=== PATIENT | male | born 1990 | race Caucasian/White ===

== ENCOUNTER 2020-07-17 06:32 | Observation (INO) | payer BC ==
[2020-07-17] MEDS ORDERED: IPRATROPIUM BROM 0.5MG/2.5ML ONE (06:56)
[2020-07-17] MEDS ORDERED: ALBUTEROL 2.5 MG/3 ML NEB SOL ONE (06:56)
--- NOTE | 2020-07-17 06:58 | EDPHYS ---
Physician Documentation [facility] Name: Teodoro Carias Age: 30 yrs Sex: Male : 1990 Arrival Date: 07/17/2020 Time: 06:33 Bed 8 Private MD: ED Physician Harish Salomon HPI: 07/17 06:48 This 30 yrs old Male presents to ER via Wheelchair with complaints of Cough. ellie 06:48 The patient or guardian reports airway noise, cough. Onset: The symptoms/episode ellie began/occurred 5 day(s) ago. Severity of symptoms: At their worst the symptoms were moderate, in the emergency department the symptoms are unchanged. Modifying factors: The symptoms are alleviated by nothing, the symptoms are aggravated by nothing. Associated signs and symptoms: The patient has no apparent associated signs or symptoms. The patient has experienced similar episodes in the past, several times. Historical: - Allergies: 06:39 No Known Allergies; sg - Home Meds: 06:39 Albuterol Inhl [Active]; sg - PMHx: 06:39 Asthma; sg - PSHx: 06:39 None; sg - Immunization history:: Adult Immunizations up to date. - Social history:: Smoking status: Patient denies any tobacco usage or history of. - Family history:: not pertinent. ROS: 06:48 Constitutional: Negative for fever, chills, and weight loss, Eyes: Negative for injury, ellie pain, redness, and discharge, ENT: Negative for injury, pain, and discharge, Neck: Negative for injury, pain, and swelling, Cardiovascular: Negative for chest pain, palpitations, and edema, Abdomen/GI: Negative for abdominal pain, nausea, vomiting, diarrhea, and constipation, Back: Negative for injury and pain, : Negative for injury, bleeding, discharge, and swelling, MS/Extremity: Negative for injury and deformity, Skin: Negative for injury, rash, and discoloration, Neuro: Negative for headache, weakness, numbness, tingling, and seizure, Psych: Negative for depression, anxiety, suicide ideation, homicidal ideation, and hallucinations, Allergy/Immunology: Negative for hives, rash, and allergies, Endocrine: Negative for neck swelling, polydipsia, polyuria, polyphagia, and marked weight changes, Hematologic/Lymphatic: Negative for swollen nodes, abnormal bleeding, and unusual bruising. 06:48 Respiratory: Positive for cough, wheezing, inspiratory, expiratory. Exam: 06:48 Constitutional: This is a well developed, well nourished patient who is awake, alert, ellie and in no acute distress. Head/Face: Normocephalic, atraumatic. Eyes: Pupils equal round and reactive to light, extra-ocular motions intact. Lids and lashes normal. Conjunctiva and sclera are non-icteric and not injected. Cornea within normal limits. Periorbital areas with no swelling, redness, or edema. ENT: Nares patent. No nasal discharge, no septal abnormalities noted. Tympanic membranes are normal and external auditory canals are clear. Oropharynx with no redness, swelling, or masses, exudates, or evidence of obstruction, uvula midline. Mucous membranes moist. Neck: Trachea midline, no thyromegaly or masses palpated, and no cervical lymphadenopathy. Supple, full range of motion without nuchal rigidity, or vertebral point tenderness. No Meningismus. Chest/axilla: Normal chest wall appearance and motion. Nontender with no deformity. No lesions are appreciated. Abdomen/GI: Soft, non-tender, with normal bowel sounds. No distension or tympany. No guarding or rebound. No evidence of tenderness throughout. Back: No spinal tenderness. No costovertebral tenderness. Full range of motion. Male : Normal genitalia with no discharge or lesions. Skin: Warm, dry with normal turgor. Normal color with no rashes, no lesions, and no evidence of cellulitis. MS/ Extremity: Pulses equal, no cyanosis. Neurovascular intact. Full, normal range of motion. Neuro: Awake and alert, GCS 15, oriented to person, place, time, and situation. Cranial nerves II-XII grossly intact. Motor strength 5/5 in all extremities. Sensory grossly intact. Cerebellar exam normal. Normal gait. Psych: Awake, alert, with orientation to person, place and time. Behavior, mood, and affect are within normal limits. 06:48 Cardiovascular: Rate: tachycardic, Rhythm: regular, Pulses: Pulses are 4+ in bilateral radial, brachial, femoral, popliteal, posterior tibial and and dorsalis pedis arteries.. Heart sounds: normal, Edema: is not appreciated, JVD: is not appreciated. 07:11 ECG was reviewed by the Attending Physician. [facility] Vital Signs: 06:40 BP 120 / 79; Pulse 109; Resp 22; Temp 99.2(O); Pulse Ox 98% ; Weight 124.74 kg (R); lp1 Height 5 ft. 9 in. (175.26 cm); Pain 0/10; 07:31 BP 136 / 95; Pulse 119; Resp 23; Pulse Ox 97% ; Pain 0/10; rb1 09:12 BP 108 / 76; Pulse 106; Resp 20; Pulse Ox 95% on 2% Simple Mask; rb1 10:04 BP 108 / 64; Pulse 99; Resp 20; Pulse Ox 97% on 2% Simple Mask; Pain 0/10; rb1 06:40 Body Mass Index 40.61 (124.74 kg, 175.26 cm) lp1 MDM: 06:40 Patient medically screened. ellie 06:48 Differential Diagnosis: Bronchitis Influenza Upper Respiratory Infection Pharyngitis ellie Asthma Exacerbation Viral Syndrome Pneumonia. Data reviewed: vital signs, nurses notes, lab test result(s), EKG, radiologic studies. Data interpreted: monitoring coordinator: rate is 109 beats/min, rhythm is regular, Pulse oximetry: on room air is 90 %. Test interpretation: by ED physician or midlevel provider: ECG, plain radiologic studies. Counseling: I had a detailed discussion with the patient and/or guardian regarding: the historical points, exam findings, and any diagnostic results supporting the discharge/admit diagnosis, lab results, radiology results, the need for further work-up and treatment in the hospital. 07/17 06:47 Order name: Basic Metabolic Panel [facility] 07/17 06:47 Order name: CBC with Diff [facility] 07/17 06:47 Order name: LFT's [facility] 07/17 06:47 Order name: Magnesium [facility] 07/17 06:47 Order name: NT PRO-BNP [facility] 07/17 06:47 Order name: Troponin (emerg Dept Use Only) [facility] 07/17 06:47 Order name: Blood Culture Adult (2) [facility] 07/17 06:47 Order name: COVID-19 [facility] 07/17 06:47 Order name: Flu [facility] 07/17 07:49 Order name: CBC with Automated Diff [facility] 07/17 07:49 Order name: CBC with Automated Diff [facility] 07/17 07:49 Order name: Comprehensive Metabolic Panel [facility] 07/17 07:49 Order name: Comprehensive Metabolic Panel [facility] 07/17 09:49 Order name: SARS-COV-2 RT PCR [facility] 07/17 06:42 Order name: Chest Single View XRAY lp1 07/17 06:47 Order name: EKG; Complete Time: 06:48 [facility] 07/17 07:45 Order name: CT Head C Spine [facility] 07/17 07:49 Order name: CONS Pharmacy Consult [facility] 07/17 08:26 Order name: CT [facility] 07/17 06:47 Order name: Cardiac monitoring; Complete Time: 07:01 [facility] 07/17 06:47 Order name: EKG - Nurse/Tech; Complete Time: 07:01 [facility] 07/17 06:47 Order name: IV Saline Lock; Complete Time: 07:32 [facility] 07/17 06:47 Order name: Labs collected and sent; Complete Time: 07:32 [facility] 07/17 06:47 Order name: O2 Per Protocol; Complete Time: 07:02 [facility] 07/17 06:47 Order name: O2 Sat Monitoring; Complete Time: 07:31 [facility] 07/17 07:49 Order name: NPO EDMS EC:11 Rate is 101 beats/min. Rhythm is regular. QRS [place] is Normal. [place] interval is normal. ellie QRS interval is normal. QT interval is normal. No Q waves. T waves are Normal. No ST changes noted. Clinical impression: Sinus tachycardia and No evidence of ischemia. Interpreted by me. Reviewed by me. Administered Medications: 06:48 Drug: Albuterol - atroVENT (3:1) (2.5 mg - 0.5 mg) 3 ml Route: Nebulizer; lp1 07:30 Follow up: Response: No adverse reaction; Marked relief of symptoms rb1 07:30 Drug: Xopenex 2.5 mg Route: Inhalation; rb1 07:50 Drug: SOLU-Medrol 125 mg Route: IVP; Site: left antecubital; rb1 08:05 Follow up: Response: No adverse reaction rb1 07:50 Drug: Decadron - Dexamethasone 10 mg Route: IVP; Site: left antecubital; rb1 08:05 Follow up: Response: No adverse reaction rb1 07:50 Drug: Pepcid 20 mg Route: IVP; Site: left antecubital; rb1 08:05 Follow up: Response: No adverse reaction rb1 07:50 Drug: NS 0.9% 1000 ml Route: IV; Rate: 1 bolus; Site: left antecubital; rb1 07:50 Drug: Rocephin 1 grams Route: IV; Rate: per protocol; Site: left antecubital; rb1 08:05 Follow up: Response: No adverse reaction; IV Status: Completed infusion rb1 07:50 Drug: Zofran (Ondansetron) 4 mg Route: IVP; Site: left antecubital; rb1 08:05 Follow up: Response: No adverse reaction rb1 08:20 Drug: Magnesium Sulfate 2 grams Route: IVPB; Infused Over: 2 hrs; Site: left rb1 antecubital; 09:45 Follow up: Response: No adverse reaction; IV Status: Completed infusion rb1 09:50 Drug: Zithromax 500 mg Route: IVPB; Infused Over: 1 hrs; Site: left antecubital; rb1 10:43 Follow up: Response: No adverse reaction; IV Status: Completed infusion rb1 10:01 Drug: NS 0.9% 1000 ml Route: IV; Rate: 125 ml/hr; Site: left antecubital; rb1 10:43 Follow up: IV Status: Infusion continued upon admission rb1 Disposition: 07/17/20 06:58 Hospitalization ordered by Moreno Pierce for Observation. Preliminary diagnosis are Asthma, Hypoxemia, Dyspnea. - Bed requested for Telemetry/MedSurg (observation). - Status is Observation. rb1 - Condition is Fair. - Problem is new. - Symptoms have improved. Signatures: Dispatcher [employer] EDMS Brayan Sorto RN RN sg Anderson, Corey, MD MD cha Pena, Laura RN RN lp1 Starla Merino RN RN rb1 Clarita Thompson Corrections: (The following items were deleted from the chart) 10:04 06:58 Hospitalization Ordered by Moreno Pierce MD for Observation. Preliminary eb diagnosis is Asthma; Hypoxemia; Dyspnea. Bed requested for Telemetry/MedSurg (observation). Status is Observation. Condition is Fair. Problem is new. Symptoms have improved. [facility] 10:44 10:04 07/17/2020 06:58 Hospitalization Ordered by Moreno Pierce MD for Observation. rb1 Preliminary diagnosis is Asthma; Hypoxemia; Dyspnea. Bed requested for Telemetry/MedSurg (observation). Status is Observation. Condition is Fair. Problem is new. Symptoms have improved. eb
--- NOTE | 2020-07-17 06:58 | ER ---
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 Friend and/or Co-Worker states: Hes asthmatic and does have his rescue inhaler, his sats were like 88% before we got here. Coronavirus screen: Client denies travel out of the [place] in the last 14 days. At this time, the client does not indicate any symptoms associated with coronavirus-19. Ebola Screen: Patient negative for fever greater than or equal to 101.5 degrees Fahrenheit, and additional compatible Ebola Virus Disease symptoms Patient denies exposure to infectious person. Patient denies travel to an Ebola-affected area in the 21 days before illness onset. No symptoms or risks identified at this time. Initial Sepsis Screen: Does the patient meet any 2 criteria? RR > 20 per min. HR > 90 bpm. Does the patient have a suspected source of infection? No. Patient's initial sepsis screen is negative. Risk Assessment: Do you want to hurt yourself or someone else? Patient reports no desire to harm self or others. Onset of symptoms was July 17, 2020. Care prior to arrival: None. Transition of care: patient was not received from another setting of care. 06:37 Acuity: FROILAN 3 sg 06:37 Method Of Arrival: Wheelchair sg Historical: - Allergies: 06:39 No Known Allergies; sg - Home Meds: 06:39 Albuterol Inhl [Active]; sg - PMHx: 06:39 Asthma; sg - PSHx: 06:39 None; sg - Immunization history:: Adult Immunizations up to date. - Social history:: Smoking status: Patient denies any tobacco usage or history of. - Family history:: not pertinent. Screenin:47 Abuse screen: Denies threats or abuse. Denies injuries from another. Nutritional lp1 screening: No deficits noted. Tuberculosis screening: No symptoms or risk factors identified. Fall Risk None identified. Assessment: 06:45 General: Appears uncomfortable, Behavior is appropriate for age. Pain: Denies pain. lp1 Neuro: Level of Consciousness is awake, alert, obeys commands, Oriented to person, place, time, situation. Cardiovascular: Patient's skin is warm and dry. Respiratory: Reports shortness of breath cough that is persistent Airway is patent Trachea midline Respiratory effort is labored, Respiratory pattern is regular, tachypnea Breath sounds with wheezes bilaterally. GI: Abdomen is obese. : No signs and/or symptoms were reported regarding the genitourinary system. EENT: No signs and/or symptoms were reported regarding the EENT system. Derm: Skin is intact, Skin is dry, Skin is normal. Musculoskeletal: No deficits noted. 07:05 General: Appears in no apparent distress. comfortable, Behavior is calm, cooperative. rb1 Pain: Denies pain. Neuro: Level of Consciousness is awake, alert, obeys commands, Oriented to person, place, time, situation. Cardiovascular: Patient's skin is warm and dry. Respiratory: Airway is patent Respiratory effort is even, labored, Respiratory pattern is regular, symmetrical. Derm: Skin is pink, warm \T\ dry. 08:05 Reassessment: Patient appears in no apparent distress at this time. No changes from rb1 previously documented assessment. 09:16 Reassessment: Patient appears in no apparent distress at this time. Patient and/or rb1 family updated on plan of care and expected duration. Pain level reassessed. Patient is alert, oriented x 3, equal unlabored respirations, skin warm/dry/pink. Reports that his breathing is better, denies feeling short of breath. 10:07 Reassessment: Patient appears in no apparent distress at this time. No changes from rb1 previously documented assessment. Respiratory: Denies shortness of breath. 10:11 Reassessment: Tried to call Dr. Pierce to give him test results, could not leave a rb1 voicemail because his mailbox was full. 10:12 Reassessment: Called report to JOSUE Mullen. Information from the [facility] was given. All rb1 questions asked and answered. Vital Signs: 06:40 BP 120 / 79; Pulse 109; Resp 22; Temp 99.2(O); Pulse Ox 98% ; Weight 124.74 kg (R); lp1 Height 5 ft. 9 in. (175.26 cm); Pain 0/10; 07:31 BP 136 / 95; Pulse 119; Resp 23; Pulse Ox 97% ; Pain 0/10; rb1 09:12 BP 108 / 76; Pulse 106; Resp 20; Pulse Ox 95% on 2% Simple Mask; rb1 10:04 BP 108 / 64; Pulse 99; Resp 20; Pulse Ox 97% on 2% Simple Mask; Pain 0/10; rb1 06:40 Body Mass Index 40.61 (124.74 kg, 175.26 cm) lp1 ED Course: 06:33 Patient arrived in ED. ag3 06:37 Arm band placed on. sg 06:39 Triage completed. sg 06:40 Harish Salomon MD is Attending Physician. ellie 06:41 Carrie Segal, RN is Primary Nurse. lp1 06:50 Patient has correct armband on for positive identification. panel monitor on. Pulse lp1 ox on. NIBP on. 06:57 Chest Single View XRAY In Process Unspecified. EDMS 06:57 Moreno Pierce MD is Hospitalizing Provider. ellie 07:30 Inserted saline lock: 20 gauge in left antecubital area, using aseptic technique. Blood ds4 collected. Missed attempt(s): 18 gauge in right antecubital area. Bleeding controlled, band aid applied, catheter tip intact. 08:30 CT completed. Patient tolerated procedure well. Patient moved back from CT. bq 08:32 Primary Nurse role handed off by Carrie Segal, RN rb1 08:32 Starla Merino, JOSUE is Primary Nurse. rb1 10:43 No provider procedures requiring assistance completed. Patient admitted, IV remains in rb1 place. Administered Medications: 06:48 Drug: Albuterol - atroVENT (3:1) (2.5 mg - 0.5 mg) 3 ml Route: Nebulizer; lp1 07:30 Follow up: Response: No adverse reaction; Marked relief of symptoms rb1 07:30 Drug: Xopenex 2.5 mg Route: Inhalation; rb1 07:50 Drug: SOLU-Medrol 125 mg Route: IVP; Site: left antecubital; rb1 08:05 Follow up: Response: No adverse reaction rb1 07:50 Drug: Decadron - Dexamethasone 10 mg Route: IVP; Site: left antecubital; rb1 08:05 Follow up: Response: No adverse reaction rb1 07:50 Drug: Pepcid 20 mg Route: IVP; Site: left antecubital; rb1 08:05 Follow up: Response: No adverse reaction rb1 07:50 Drug: NS 0.9% 1000 ml Route: IV; Rate: 1 bolus; Site: left antecubital; rb1 07:50 Drug: Rocephin 1 grams Route: IV; Rate: per protocol; Site: left antecubital; rb1 08:05 Follow up: Response: No adverse reaction; IV Status: Completed infusion rb1 07:50 Drug: Zofran (Ondansetron) 4 mg Route: IVP; Site: left antecubital; rb1 08:05 Follow up: Response: No adverse reaction rb1 08:20 Drug: Magnesium Sulfate 2 grams Route: IVPB; Infused Over: 2 hrs; Site: left rb1 antecubital; 09:45 Follow up: Response: No adverse reaction; IV Status: Completed infusion rb1 09:50 Drug: Zithromax 500 mg Route: IVPB; Infused Over: 1 hrs; Site: left antecubital; rb1 10:43 Follow up: Response: No adverse reaction; IV Status: Completed infusion rb1 10:01 Drug: NS 0.9% 1000 ml Route: IV; Rate: 125 ml/hr; Site: left antecubital; rb1 10:43 Follow up: IV Status: Infusion continued upon admission rb1 Outcome: 06:58 Decision to Hospitalize by Provider. ellie 10:43 Admitted to Med/surg accompanied by tech, family with patient, via wheelchair, room rb1 211, with oxygen, with chart, Report called to JOSUE Mullen 10:43 Condition: stable 10:43 Instructed on the need for admit. 10:44 Patient left the ED. rb1 Signatures: Dispatcher [employer] EDMS Brayan Sorto RN RN sg Anderson, Corey, MD MD cha Quilty, Betty bq Pena, Laura, RN RN Cecil [id number] Starla Merino RN RN rb1 Chelsea Saleem ag3 Corrections: (The following items were deleted from the chart) 09:28 09:12 BP 108 / 76; Pulse 106bpm; Resp 20bpm; Pulse Ox 95%; rb1 rb1
[2020-07-17] MEDS ORDERED: METHYLPREDNISOLONE 125 MG INJ ONE (07:39)
[2020-07-17] MEDS ORDERED: NA CHLORIDE 0.9% 1,000 ML ONE ×2 (07:40→10:13)
[2020-07-17] MEDS ORDERED: FAMOTIDINE 20 MG/2 ML VIAL IV ONE (07:40)
[2020-07-17] MEDS ORDERED: LEVALBUTEROL 1.25 MG/3 ML NEB ONE ×3 (07:40→08:00)
[2020-07-17] MEDS ORDERED: CEFTRIAXONE/SWI 1gm 1 GM/10 ML SYR ONE (07:40)
[2020-07-17] MEDS ORDERED: dexAMETHasone 4 MG/ML VIAL ONE (07:40)
[2020-07-17 07:41] LABS: Absolute Lymphocytes (CBC) 3.5 K/uL (0.7-4.9); Basophils % 0.8 % (0-1.3); Hematocrit 39.6 % (39.6-49.0); Lymphocytes % 30.1 % (15.3-44.8); MPV 8.8 fL (7.6-11.3); RBC Red Blood Cell Count 4.72 M/uL (4.33-5.43)
[2020-07-17] MEDS ORDERED: Magnesium Sulfate 2gm IVPB 2 G/50 ML BAG IV ONE (07:41)
[2020-07-17] MEDS ORDERED: ONDANSETRON 4 MG/2 ML VIAL IV PRN (07:41)
[2020-07-17] MEDS ORDERED: MORPHINE 2 MG/ML SYR IV PRN (07:41)
[2020-07-17] MEDS ORDERED: ACETAMINOPHEN 500 MG TAB PO PRN (07:41)
[2020-07-17] MEDS ORDERED: ONDANSETRON 4 MG/2 ML VIAL ONE (08:00)
[2020-07-17] MEDS ORDERED: AZITHROMYCIN IV 500 MG in NA CHLORIDE 0.9% 250 ML IVPB ONE (08:00)
[2020-07-17 08:07] LABS: ALT/SGPT 40 U/L (12-78); AST/SGOT 29 U/L (15-37); Albumin 3.5 g/dL (3.4-5.0); Alkaline Phosphatase 90 U/L (45-117); BUN Blood Urea Nitrogen 16 mg/dL (7-18); Bicarbonate 24 mmol/L (21-32); Bilirubin Direct < 0.1 mg/dL (0-0.2); Bilirubin Total 0.4 mg/dL (0.2-1.0); Glucose Level 117 mg/dL (74-106); Magnesium 1.9 mg/dL (1.8-2.4); NT PRO-BNP 118 pg/mL (<125); Potassium 3.2 mmol/L (3.5-5.1); Protein, Total 7.9 g/dL (6.4-8.2); Sodium Level 138 mmol/L (136-145); Troponin (Emerg Dept Use Only) < 0.02 ng/mL (0.0-0.045)
--- NOTE | 2020-07-17 08:25 | RAD REPORT ---
EXAM DESCRIPTION: CT - [id number] - 07/17/2020 8:14 am CLINICAL HISTORY: Trauma, head and neck injury. PAIN COMPARISON: <Comparisons> TECHNIQUE: Axial 5 mm thick images of the head were obtained. Axial 2 mm thick images of the cervical spine were obtained with sagittal and coronal reconstruction images generated and reviewed. All CT scans are performed using dose optimization technique as appropriate and may include automated exposure control or mA/KV adjustment according to patient size. FINDINGS: CT HEAD WITHOUT CONTRAST: No acute hemorrhage, hydrocephalus or extra-axial collection is identified.No areas of brain edema or midline shift. Moderate paranasal sinus disease is present.The calvarium is intact. Small posterior scalp hematoma. CT CERVICAL SPINE WITHOUT CONTRAST: No fracture or subluxation.No prevertebral soft tissues swelling is identified. IMPRESSION: No acute intracranial or cervical spine findings.
[2020-07-17] MEDS: IPRATROPIUM BROM 0.5MG/2.5ML NEB SCH ×3 (08:28→19:35)
[2020-07-17] MEDS: ALBUTEROL 2.5 MG/3 ML NEB SOL NEB SCH ×3 (08:28→19:35)
[2020-07-17] MEDS ORDERED: CEFTRIAXONE 1 GM/NS 50 ML 1 GM/50 ML BAG IV SCH (09:00)
[2020-07-17 11:26] VITALS: BMI 39.9
[2020-07-17] MEDS ORDERED: INFLUENZA VACCINE (for 3y+) 0.5 ML DOSE IMVAC ONE (12:00)
[2020-07-17] MEDS: METHYLPREDNISOLONE 125 MG INJ IV SCH ×3 (12:07→23:59)
--- NOTE | 2020-07-17 12:08 | RAD REPORT ---
EXAM DESCRIPTION: RAD - Chest Single View - 07/17/2020 6:57 am CLINICAL HISTORY: Cough;SOB Chest pain. COMPARISON: CHEST PA AND LAT 2 VIEW dated 12/28/2012 FINDINGS: Portable technique limits examination quality. Mild interstitial prominence is seen bilaterally suggesting bronchitis/interstitial pneumonitis. The heart is normal in size. No displaced fractures.
[2020-07-17] MEDS: NA CHLORIDE 0.9% 1,000 ML IV SCH ×2 (18:04→21:20)
[2020-07-17] MEDS: CEFTRIAXONE/SWI 1gm 1 GM/10 ML SYR IV SCH (19:51)
[2020-07-18] MEDS: IPRATROPIUM BROM 0.5MG/2.5ML NEB SCH ×2 (01:05→07:26)
[2020-07-18] MEDS: ALBUTEROL 2.5 MG/3 ML NEB SOL NEB SCH ×2 (01:05→07:26)
[2020-07-18 05:52] LABS: Absolute Lymphocytes (CBC) 1.3 K/uL (0.7-4.9); Basophils % 0.1 % (0-1.3); Hematocrit 39.4 % (39.6-49.0); Lymphocytes % 8.4 % (15.3-44.8); MPV 9.2 fL (7.6-11.3); RBC Red Blood Cell Count 4.54 M/uL (4.33-5.43)
[2020-07-18 06:05] LABS: ALT/SGPT 32 U/L (12-78); AST/SGOT 17 U/L (15-37); Albumin 3.2 g/dL (3.4-5.0); Alkaline Phosphatase 80 U/L (45-117); BUN Blood Urea Nitrogen 13 mg/dL (7-18); Bicarbonate 25 mmol/L (21-32); Bilirubin Total 0.5 mg/dL (0.2-1.0); Glucose Level 159 mg/dL (74-106); Protein, Total 7.2 g/dL (6.4-8.2); Sodium Level 139 mmol/L (136-145)
[2020-07-18] MEDS: NA CHLORIDE 0.9% 1,000 ML IV SCH (06:38)
[2020-07-18] MEDS: METHYLPREDNISOLONE 125 MG INJ IV SCH (06:39)
--- NOTE | 2020-07-18 07:42 | P.HP ---
Certification for Inpatient Patient admitted to: Observation With expected LOS: <2 Midnights Patient will require the following post-hospital care: None Practitioner: I am a practitioner with admitting privileges, knowledge of patient current condition, hospital course, and medical plan of care. Services: Services provided to patient in accordance with Admission requirements found in Title 42 Section 412.3 of the Code of Federal Regulations Patient History Date of Service: 07/18/20 Reason for admission: Acute asthma exacerbation History of Present Illness: Patient is a 30-year-old gentleman came to the hospital with shortness of breath. Patient having wheezing coughing congestion. Patient passed out. He believes he took us a long inhalation of tobacco. EMS was called to his work site. He was hypoxic at 70%. Patient has a history of asthma. He was brought into the emergency room and given neb treatments. At this time he is doing better but will admit her for observation. Allergies No Known Allergies Allergy (Verified 12/28/12 10:47) Home Medications: Albuterol Neb [Proventil 0.083% Neb Soln] 1 amp IH Q2HP PRN 07/17/20 Albuterol Sulfate [Proair Hfa] 2 puff IH BID 07/17/20 - Past Medical/Surgical History Has patient received pneumonia vaccine in the past: No Diabetic: No -: Asthma -: HPN -: Lap Appendectomy - Family History Father Medical History: Hypertension, Other (see notes) Notes: Asthma Mother Medical History: Other (see notes) Notes: Crohn's. Barrette esophagus. Fibromyalgia - Social History Smoking Status: Former smoker Alcohol use: Yes CD- Drugs: No Caffeine use: Yes Place of Residence: Home Review of Systems 10-point ROS is otherwise unremarkable Physical Examination - Vital Signs Temperature: 96.9 F Blood Pressure: 100/68 Pulse: 79 Respirations: 18 Pulse Ox (%): 94 - Physical Exam General: Alert, In no apparent distress, Oriented x3 HEENT: Atraumatic, PERRLA, Mucous membr. moist/pink, EOMI, Sclerae nonicteric Neck: Supple, 2+ carotid pulse no bruit, No LAD, Without JVD or thyroid abnormality Respiratory: Diminished, Expiratory wheezes Cardiovascular: Regular rate/rhythm, Normal S1 S2 Gastrointestinal: Normal bowel sounds, No tenderness Musculoskeletal: No tenderness Integumentary: No rashes Neurological: Normal gait, Normal speech, Normal strength at 5/5 x4 extr, Normal tone, Normal affect Lymphatics: No axilla or inguinal lymphadenopathy - Studies Laboratory Data (last 24 hrs) 07/17/20 07:30: WBC 11.8 H, Hgb 14.0, Hct 39.6, Plt Count 259 07/17/20 07:30: Sodium 138, Potassium 3.2 L, BUN 16, Creatinine 0.97, Glucose 117 H, Magnesium 1.9, Total Bilirubin 0.4, AST 29, ALT 40, Alkaline Phosphatase 90 Assessment & Plan - Problems (Diagnosis) (1) Asthma exacerbation attacks Current Visit: Yes Status: Acute - Plan Plan: 1. Continue with albuterol and Atrovent nebs 2. Continue with IV steroids 3. Outpatient pulmonary function testing 4. Pulmonary follow-up if symptoms do not improve 5. Room air O2 sats 6. Repeat chest x-ray in the morning 7. Peak flows as needed 8. GI and DVT prophylaxis Discharge Plan: Home Plan to discharge in: 24 Hours - Advance Directives Does patient have a Living Will: No Does patient have a Durable POA for Healthcare: No - Code Status/Comfort Care Code Status Assessed: Yes Code Status: Full Code Critical Care: No Time Spent Managing PTS Care (In Minutes): 45
[2020-07-18] MEDS: CEFTRIAXONE/SWI 1gm 1 GM/10 ML SYR IV SCH (08:04)
[2020-07-18 08:10] LABS: Blood Morphology Comment NOT SEEN (NOT SEEN); Platelet Estimate ADEQ
[2020-07-18 08:48] VITALS: BP 108/57; TEMP 97.1
[2020-07-18 09:34] VITALS: O2SAT 93
--- NOTE | 2020-07-19 08:06 | P.DS ---
Discharge Date: 07/18/20 Disposition: ROUTINE DISCHARGE Discharge Condition: GOOD Reason for Admission: Acute asthma exacerbation - Problems (1) Asthma exacerbation attacks Status: Acute Brief History of Present Illness: Patient is a 30-year-old gentleman came to the hospital with shortness of breath. Patient having wheezing coughing congestion. Patient passed out. He believes he took us a long inhalation of tobacco. EMS was called to his work site. He was hypoxic at 70%. Patient has a history of asthma. He was brought into the emergency room and given neb treatments. At this time he is doing better but will admit her for observation. Hospital Course: Patient's symptoms are much better. Peak flow is at 300-400. Patient will be discharged on albuterol inhaler as well as albuterol nebulizer and Advair as well. At this time, patient is stable for discharge home with outpatient follow-up. Vital Signs/Physical Exam: Temp Pulse Resp BP Pulse Ox 97.1 F 101 H 15 108/57 L 93 07/18/20 08:00 07/18/20 08:00 07/18/20 08:00 07/18/20 08:00 07/18/20 08:00 General: Alert, In no apparent distress, Oriented x3 Laboratory Data at Discharge: WBC 15.0 K/uL (4.3-10.9) H D 07/18/20 05:19 Hgb 13.2 g/dL (13.6-17.9) L 07/18/20 05:19 Hct 39.4 % (39.6-49.0) L 07/18/20 05:19 Plt Count 276 K/uL (152-406) 07/18/20 05:19 Sodium 139 mmol/L (136-145) 07/18/20 05:19 Potassium 4.0 mmol/L (3.5-5.1) 07/18/20 05:19 BUN 13 mg/dL (7-18) 07/18/20 05:19 Creatinine 0.96 mg/dL (0.55-1.3) 07/18/20 05:19 Glucose 159 mg/dL (74-106) H 07/18/20 05:19 Magnesium 1.9 mg/dL (1.8-2.4) 07/17/20 07:30 Total Bilirubin 0.5 mg/dL (0.2-1.0) 07/18/20 05:19 AST 17 U/L (15-37) 07/18/20 05:19 ALT 32 U/L (12-78) 07/18/20 05:19 Alkaline Phosphatase 80 U/L (45-117) 07/18/20 05:19 Home Medications: Albuterol Neb [Proventil 0.083% Neb Soln] 1 amp IH Q2HP PRN #1 box 07/18/20 Albuterol Sulfate [Proair Hfa] 8.5 gm IH BID 60 Days #1 hfa.aer.ad 07/18/20 Fluticasone/Salmeterol [Advair 250-50 Diskus] 1 each IH BID #1 disk.w.dev 07/18/20 Methylprednisolone [Medrol dosepack] 4 mg PO DIRECTED #1 taurus 07/18/20 New Medications: Fluticasone/Salmeterol [Advair 250-50 Diskus] 1 each IH BID #1 disk.w.dev Methylprednisolone [Medrol dosepack] 4 mg PO DIRECTED #1 taurus Albuterol Sulfate [Proair Hfa] 8.5 gm IH BID 60 Days #1 hfa.aer.ad Albuterol Neb [Proventil 0.083% Neb Soln] 1 amp IH Q2HP PRN #1 box PRN Reason: Shortness Of Breath Patient Discharge Instructions: OK TO DC IV AND DC HOME. FOLLOW-UP WITH PRIMARY CARE PROVIDER IN 1-2 WEEKS. FOLLOW-UP WITH PULMONARY IN 1-2 WEEKS. RETURN TO THE ER IF SYMPTOMS WORSEN. CALL or TEXT DR. OLMEDO AT [phone] IF ANY QUESTIONS REGARDING HOSPITAL STAY. PLEASE CALL THE FLOOR AT [phone] IF ANY MEDICATION OR NURSING QUESTIONS. Diet: Regular Activity: Fall precautions Followup: New Chang MD [ACTIVE - CAN ADMIT] - 1-2 Weeks (Call to make an appointment. ) NONE,NONE [Primary Care Provider] - Time spent managing pt's care (in minutes): 35
--- NOTE | 2020-07-20 10:12 | EKG ---
Test Date: 2020-07-17 Test Time: 06:57:53 [employer]r: ERIN MEASUREMENT RESULTS: Intervals: Rate: 101 [place]: 146 QRSD: 96 QT: 370 QTc: 479 [place]: P: 63 [place]: 146 QRS: 44 T: 49 INTERPRETIVE STATEMENTS: Sinus tachycardia Otherwise normal ECG No previous ECG available for comparison Electronically Signed On 07-20-20 10:07:08 CDT by Tobias Steinberg
== END 2020-07-18 09:40 | disposition home or self-care (01) ==
LOC: ER 06:32 → ERHOLD 07:41 → 2ND 10:18
PROVIDERS: ADMIT Hospitalist; ATTEND Hospitalist
DX: J45.901 Unspecified asthma with (acute) exacerbation (principal)
CPT/HCPCS: 96365; 96367; 93005; 87040 ×2; 85025 ×2; 80048; 36415; 83735; 80076; 84484; 80053; 83880; 87804 ×2; 70450; 72125; 71045; 90471; 94010; 94640 ×4; 96375; 99285; U0003; J1100; Q2035; J0456; J2270; J3475; J0696 ×3; J7050; J7030 ×4; J2930 ×5; J2405; G0378 ×3

== ENCOUNTER 2024-07-19 13:18 | Emergency (ER) | payer BC ==
[2024-07-19] MEDS ORDERED: METHYLPREDNISOLONE 125 MG INJ ONE (14:19)
[2024-07-19] MEDS ORDERED: predniSONE 20 MG TAB ONE (14:19)
[2024-07-19] MEDS ORDERED: IPRATROPIUM BROM 0.5MG/2.5ML ONE (14:19)
[2024-07-19] MEDS ORDERED: LEVALBUTEROL 1.25 MG/3 ML NEB ONE ×2 (14:19→15:22)
[2024-07-19] MEDS ORDERED: AZITHROMYCIN 250 MG TAB ONE (14:20)
[2024-07-19] MEDS ORDERED: NA CHLORIDE 0.9% 1,000 ML ONE (14:20)
[2024-07-19 14:46] LABS: Albumin 3.4 g/dL (3.4-5.0); Albumin/Globulin Ratio 0.7 (1.1-1.8); Anion Gap 9.6 mEq/L (5.0-15.0); Bilirubin Total 1.6 mg/dL (0.2-1.0); Globulin 4.9 g/dL (2.3-3.5); Potassium 3.6 mEq/L (3.5-5.1); Protein, Total 8.3 g/dL (6.4-8.2)
[2024-07-19 14:52] LABS: Absolute Eosinophils 0.3 K/uL (0-0.5); Absolute Lymphocytes (CBC) 2.1 K/uL (0.7-4.9); Absolute Monocytes 1.8 K/uL (0.1-1.3); Absolute Neutrophil 9.2 K/uL (1.8-8.0); Basophils % 0.3 % (0-1.3); Eosinophils % 1.9 % (0-4.4); Hematocrit 43.6 % (39.6-49.0); Hemoglobin 14.4 g/dL (13.6-17.9); Lymphocytes % 15.4 % (15.3-44.8); MCH 28.2 pg (27.0-35.0); MCV 85.5 fL (80-100); MPV 8.8 fL (7.6-11.3); Monocytes % 13.4 % (3.3-12.3); Platelets 295 thou/uL (152-406); Red Cell Distribution Width 14.3 % (12.1-15.2)
[2024-07-19] MEDS ORDERED: AMOX/K CLAV 875 MG TAB ONE (15:22)
--- NOTE | 2024-07-19 15:34 | EDPHYS ---
Physician Documentation [facility] Name: Teodoro Carias Age: 34 yrs Sex: Male : 1990 Arrival Date: 07/19/2024 Time: 13:18 Bed 4 Private MD: ED Physician Harish Salomon HPI: 07/19 15:16 This 34 yrs old Male presents to ER via Ambulatory with complaints of Asthma ellie Exacerbation. 15:16 The patient presents to the emergency department with wheezing, Current therapy: None, ellie that began without any particular precipitating event. Onset: The symptoms/episode began/occurred 5 day(s) ago. Modifying factors: The symptoms are alleviated by nothing, the symptoms are aggravated by exertion. Associated signs and symptoms: Pertinent positives: fever. Severity of symptoms: At their worst the symptoms were moderate in the emergency department the symptoms are unchanged. The patient has experienced similar episodes in the past. Historical: - Allergies: 13:39 Iodine; aa5 - PMHx: 13:39 Asthma; seasonal allergies; aa5 - PSHx: 13:39 Appendectomy; aa5 - Immunization history:: Adult Immunizations unknown. - Infectious Disease History:: Denies. - Social history:: Smoking status: Patient reports use of chewing tobacco. - Family history:: not pertinent. ROS: 15:16 Constitutional: Negative for fever, chills, and weight loss, Eyes: Negative for injury, ellie pain, redness, and discharge, ENT: Negative for injury, pain, and discharge, Neck: Negative for injury, pain, and swelling, Abdomen/GI: Negative for abdominal pain, nausea, vomiting, diarrhea, and constipation, Back: Negative for injury and pain, : Negative for injury, bleeding, discharge, and swelling, MS/Extremity: Negative for injury and deformity, Skin: Negative for injury, rash, and discoloration, Neuro: Negative for headache, weakness, numbness, tingling, and seizure, Psych: Negative for depression, anxiety, suicide ideation, homicidal ideation, and hallucinations, Allergy/Immunology: Negative for hives, rash, and allergies, Endocrine: Negative for neck swelling, polydipsia, polyuria, polyphagia, and marked weight changes, Hematologic/Lymphatic: Negative for swollen nodes, abnormal bleeding, and unusual bruising, 15:16 Cardiovascular: Positive for palpitations, 15:16 Respiratory: Positive for cough, shortness of breath, wheezing, inspiratory, expiratory, Exam: 15:16 Constitutional: This is a well developed, well nourished patient who is awake, alert, ellie and in no acute distress. Head/Face: Normocephalic, atraumatic. Eyes: Pupils equal round and reactive to light, extra-ocular motions intact. Lids and lashes normal. Conjunctiva and sclera are non-icteric and not injected. Cornea within normal limits. Periorbital areas with no swelling, redness, or edema. ENT: Nares patent. No nasal discharge, no septal abnormalities noted. Tympanic membranes are normal and external auditory canals are clear. Oropharynx with no redness, swelling, or masses, exudates, or evidence of obstruction, uvula midline. Mucous membranes moist. Neck: Trachea midline, no thyromegaly or masses palpated, and no cervical lymphadenopathy. Supple, full range of motion without nuchal rigidity, or vertebral point tenderness. No Meningismus. Chest/axilla: Normal chest wall appearance and motion. Nontender with no deformity. No lesions are appreciated. Cardiovascular: Regular rate and rhythm with a normal S1 and S2. No gallops, murmurs, or rubs. Normal PMI, no JVD. No pulse deficits. Abdomen/GI: Soft, non-tender, with normal bowel sounds. No distension or tympany. No guarding or rebound. No evidence of tenderness throughout. Back: No spinal tenderness. No costovertebral tenderness. Full range of motion. Male : Normal genitalia with no discharge or lesions. Skin: Warm, dry with normal turgor. Normal color with no rashes, no lesions, and no evidence of cellulitis. MS/ Extremity: Pulses equal, no cyanosis. Neurovascular intact. Full, normal range of motion. Neuro: Awake and alert, GCS 15, oriented to person, place, time, and situation. Cranial nerves II-XII grossly intact. Motor strength 5/5 in all extremities. Sensory grossly intact. Cerebellar exam normal. Normal gait. Psych: Awake, alert, with orientation to person, place and time. Behavior, mood, and affect are within normal limits. 15:16 Respiratory: mild respiratory distress is noted, Respirations: normal, Breath sounds: decreased breath sounds, that are mild, rhonchi, that are mild, stridor, is not appreciated, + upper airway congestion. Respiratory rate: 18 15:16 Musculoskeletal/extremity: DVT Exam: No signs of deep vein thrombosis. no pain, no swelling, no tenderness, negative Homans' sign noted on exam, no appreciated bluish discoloration, no erythema, no increased warmth, Vital Signs: 13:40 BP 127 / 89; Pulse 104; Resp 20 S; Temp 99.1(O); Pulse Ox 98% on R/A; Weight 149.69 kg aa5 (R); Height 5 ft. 9 in. (R); 14:30 BP 135 / 77; Pulse 103; Resp 18; Pulse Ox 100% on Nebulizer Mask; ph 15:59 BP 150 / 93; Pulse 101; Resp 18; Temp 97.5; Pulse Ox 98% on R/A; ph 16:42 BP 150 / 61; Pulse 101; Resp 18; Temp 98; Pulse Ox 98% ; bp 13:40 Body Mass Index 48.73 (149.69 kg, 175.26 cm) aa5 [place] Coma Score: 15:16 Eye Response: spontaneous(4). Motor Response: obeys commands(6). Verbal Response: ellie oriented(5). Total: 15. MDM: 13:54 Medical Screening Exam initiated ellie 15:27 Differential diagnosis: acute asthma, exercise-induced asthma, reactive airway, CHF, ellie anaphylaxis, URI. Antibiotic administration: The patient is discharged and will get outpatient antibiotics, Amoxicillin, Zithromax. Data reviewed: vital signs, nurses notes, lab test result(s), radiologic studies, plain films. Consideration of Admission/Observation Escalation of care including admission/observation considered. I considered the following discharge prescriptions or medication management in the emergency department Medications were administered in the Emergency Department. See MAR. Test considered but Not performed: CT: NO CT CHEST. Care significantly affected by the following chronic conditions: Obesity, ASTHMA. 07/19 13:56 Order name: CBC with Diff; Complete Time: 15:15 [facility] 07/19 13:56 Order name: Comprehensive Metabolic Panel; Complete Time: 15:15 [facility] 07/19 13:56 Order name: Chest Pa And Lat (2 Views) XRAY ellie Administered Medications: 14:27 Drug: NS 0.9% IV 1000 ml IV at 1000 ml once; to be given as a bolus over 60 minutes bp Route: IV; Rate: 1000 ml; Site: left antecubital; 16:00 Follow up: Response: No adverse reaction; IV Status: Completed infusion; IV Intake: ph 1000ml 14:27 Drug: MethylPrednisoLONE IVP 125 mg IVP once Route: IVP; Site: left antecubital; bp 16:00 Follow up: Response: No adverse reaction ph 14:27 Drug: predniSONE PO 60 mg PO once Route: PO; bp 16:00 Follow up: Response: No adverse reaction ph 14:27 Drug: AZITHromycin PO 500 mg PO once Route: PO; bp 16:00 Follow up: Response: No adverse reaction ph 14:27 Drug: Levalbuterol Inhalation 3.75 mg Inhalation once Route: Inhalation; bp 16:02 Follow up: Response: No adverse reaction ph 14:27 Drug: Ipratropium Inhalation Aerosol 0.5 mg Inhalation once Route: Inhalation; bp 16:02 Follow up: Response: No adverse reaction ph 15:16 CANCELLED (Duplicate Order): ipratropiumaerosol 0.5 mg Inhalation once ellie 15:59 Drug: Levalbuterol Inhalation 1.25 mg Inhalation once Route: Inhalation; ph 16:02 Follow up: Response: No adverse reaction ph 15:59 Drug: Levalbuterol Inhalation 1.25 mg Inhalation once Route: Inhalation; ph 16:02 Follow up: Response: No adverse reaction ph 15:59 Drug: Amoxicillin-Clavulanate PO 875 mg PO once Route: PO; ph 16:03 Follow up: Response: No adverse reaction ph Disposition Summary: 07/19/24 15:34 Discharge Ordered Notes: Location: Home ellie Problem: new ellie Symptoms: have improved ellie Condition: Stable ellie Diagnosis - Moderate persistent asthma ellie - Moderate persistent asthma with (acute) exacerbation ellie - Acute upper respiratory infection, unspecified ellie Followup: ellie - With: Private Physician - When: 2 - 3 days - Reason: Recheck today's complaints, Re-evaluation by your physician Followup: ellie - With: New Chang MD - When: 2 - 3 days - Reason: Recheck today's complaints, Re-evaluation by your physician Discharge Instructions: - Discharge Summary Sheet ellie - Asthma, Adult ellie - How to Use a Metered Dose Inhaler ellie - Upper Respiratory Infection, Adult ellie - Asthma Attack ellie - Cool Mist Vaporizer ellie - Upper Respiratory Infection, Adult, [id number] ellie - Asthma Action Plan, Adult [facility] - Cough, Adult [facility] Forms: - Medication Reconciliation Form [facility] - Antibiotic Education ellie - Prescription Opioid Use ellie - Patient Portal Instructions [facility] - Leadership Thank You Letter [facility] Prescriptions: - albuterol sulfate 90 mcg/actuation Inhalation HFA Aerosol Inhaler - inhale 2 inhalation INHALATION route every 4 to 6 hours as needed for shortness ellie of breath or wheezing; 2 unit; Refills: 0, Product Selection Permitted - Augmentin 875-125 mg Oral Tablet - take 1 tablet ORAL route every 12 hours for 10 days; 20 tablet; Refills: 0, ellie Product Selection Permitted - Prednisone 20 mg Oral Tablet - take 3 tablets ORAL route once daily for 5 days; 15 tablet; Refills: 0, Product ellei Selection Permitted - Albuterol Sulfate 2.5 mg /3 mL (0.083 %) Inhalation Solution for Nebulization - inhale 1 unit NEBULIZATION route every 4-6 hours As needed; 30 unit; Refills: ellie 0, Product Selection Permitted - Zithromax 500 mg Oral Tablet - take 1 tablet ORAL route once daily for 5 days; 5 tablet; Refills: 0, Product ellie Selection Permitted Signatures: Dispatcher [employer] EDHarish Ramírez MD MD cha Calderon, Audri, RN RN aa5 Annita Larsen RN RN Cayden Garcia RN RN bp Corrections: (The following items were deleted from the chart) 15:16 15:15 Ipratropium Inhalation Aerosol 0.5 mg Inhalation once ordered. [facility] ellie
--- NOTE | 2024-07-19 15:34 | ER ---
Nurse's Notes [facility] Name: Teodoro Carias Age: 34 yrs Sex: Male : 1990 Arrival Date: 07/19/2024 Time: 13:18 Bed 4 Private MD: Diagnosis: Moderate persistent asthma;Moderate persistent asthma with (acute) exacerbation;Acute upper respiratory infection, unspecified Presentation: 07/19 13:40 Chief complaint: Patient states: cough and subjective fever that began Sunday. aa5 Coronavirus screen: cough unrelated to allergies. Ebola Screen: Patient denies travel to an Ebola-affected area in the 21 days before illness onset. Initial Sepsis Screen: Does the patient meet any 2 criteria? HR > 90 bpm. Does the patient have a suspected source of infection? No. Patient's initial sepsis screen is negative. Risk Assessment: Do you want to hurt yourself or someone else? Patient reports no desire to harm self or others. Onset of symptoms was June 2024. 13:40 Method Of Arrival: Ambulatory aa5 13:40 Acuity: FROILAN 4 aa5 Triage Assessment: 13:45 General: Appears in no apparent distress. Behavior is calm, cooperative, appropriate bp for age. Pain: Denies pain. EENT: No deficits noted. Neuro: No deficits noted. Cardiovascular: Rhythm is sinus tachycardia. Respiratory: Reports shortness of breath Breath sounds with wheezes bilaterally. GI: No signs and/or symptoms were reported involving the gastrointestinal system. : No signs and/or symptoms were reported regarding the genitourinary system. Derm: No deficits noted. Musculoskeletal: No deficits noted. Historical: - Allergies: 13:39 Iodine; aa5 - PMHx: 13:39 Asthma; seasonal allergies; aa5 - PSHx: 13:39 Appendectomy; aa5 - Immunization history:: Adult Immunizations unknown. - Infectious Disease History:: Denies. - Social history:: Smoking status: Patient reports use of chewing tobacco. - Family history:: not pertinent. Screenin:29 [facility] ED Fall Risk Assessment (Adult) History of falling in the last 3 months, ph including since admission No falls in past 3 months (0 pts) Confusion or Disorientation No (0 pts) Intoxicated or Sedated No (0 pts) Impaired Gait No (0 pts) Mobility Assist Device Used No (0 pt) Altered Elimination No (0 pt) Score/Fall Risk Level 0 - 2 = Low Risk Oriented to surroundings, Maintained a safe environment, Hourly rounding (assess needs \T\ fall precautionary measures) done. Abuse screen: Denies threats or abuse. Denies injuries from another. Nutritional screening: No deficits noted. Tuberculosis screening: No symptoms or risk factors identified. Assessment: 14:28 General: Appears in no apparent distress. comfortable, well groomed, Behavior is calm, ph cooperative, appropriate for age. Pain: Denies pain. Neuro: Level of Consciousness is awake, alert, obeys commands, Oriented to person, place, time, situation. Cardiovascular: Capillary refill < 3 seconds in bilateral fingers Patient's skin is warm and dry. Respiratory: Reports shortness of breath cough that is Airway is patent Respiratory effort is even, unlabored, Respiratory pattern is regular, symmetrical. Derm: Skin is pink, warm \T\ dry. Musculoskeletal: Circulation, motion, and sensation intact. Range of motion: intact in all extremities. 15:59 Reassessment: Patient appears in no apparent distress at this time. Patient and/or ph family updated on plan of care and expected duration. Pain level reassessed. Patient is alert, oriented x 3, equal unlabored respirations, skin warm/dry/pink. D/C pending neb treatment. Vital Signs: 13:40 BP 127 / 89; Pulse 104; Resp 20 S; Temp 99.1(O); Pulse Ox 98% on R/A; Weight 149.69 kg aa5 (R); Height 5 ft. 9 in. (R); 14:30 BP 135 / 77; Pulse 103; Resp 18; Pulse Ox 100% on Nebulizer Mask; ph 15:59 BP 150 / 93; Pulse 101; Resp 18; Temp 97.5; Pulse Ox 98% on R/A; ph 16:42 BP 150 / 61; Pulse 101; Resp 18; Temp 98; Pulse Ox 98% ; bp 13:40 Body Mass Index 48.73 (149.69 kg, 175.26 cm) aa5 [place] Coma Score: 15:16 Eye Response: spontaneous(4). Motor Response: obeys commands(6). Verbal Response: ellie oriented(5). Total: 15. ED Course: 13:20 Patient arrived in ED. ra3 13:39 Arm band placed on. aa5 13:41 Triage completed. aa5 13:54 Harish Salomon MD is Attending Physician. ellie 14:11 Cayden Garcia, JOSUE is Primary Nurse. bp 14:28 Initial lab(s) drawn, by me, sent to lab. Inserted saline lock: 22 gauge in left ph antecubital area, using aseptic technique. Blood collected. Flushed with 10 mL NS. 14:30 Patient has correct armband on for positive identification. Bed in low position. Call ph light in reach. Side rails up X 1. Pulse ox on. NIBP on. Door closed. Noise minimized. Warm blanket given. 14:48 Chest Pa And Lat (2 Views) XRAY In Process Unspecified. EDMS 15:34 New Chang MD is Referral Physician. ellie 16:03 No provider procedures requiring assistance completed. IV discontinued, intact, ph bleeding controlled, No redness/swelling at site. Pressure dressing applied. Administered Medications: 14:27 Drug: NS 0.9% IV 1000 ml IV at 1000 ml once; to be given as a bolus over 60 minutes bp Route: IV; Rate: 1000 ml; Site: left antecubital; 16:00 Follow up: Response: No adverse reaction; IV Status: Completed infusion; IV Intake: ph 1000ml 14:27 Drug: MethylPrednisoLONE IVP 125 mg IVP once Route: IVP; Site: left antecubital; bp 16:00 Follow up: Response: No adverse reaction ph 14:27 Drug: predniSONE PO 60 mg PO once Route: PO; bp 16:00 Follow up: Response: No adverse reaction ph 14:27 Drug: AZITHromycin PO 500 mg PO once Route: PO; bp 16:00 Follow up: Response: No adverse reaction ph 14:27 Drug: Levalbuterol Inhalation 3.75 mg Inhalation once Route: Inhalation; bp 16:02 Follow up: Response: No adverse reaction ph 14:27 Drug: Ipratropium Inhalation Aerosol 0.5 mg Inhalation once Route: Inhalation; bp 16:02 Follow up: Response: No adverse reaction ph 15:16 CANCELLED (Duplicate Order): ipratropiumaerosol 0.5 mg Inhalation once ellie 15:59 Drug: Levalbuterol Inhalation 1.25 mg Inhalation once Route: Inhalation; ph 16:02 Follow up: Response: No adverse reaction ph 15:59 Drug: Levalbuterol Inhalation 1.25 mg Inhalation once Route: Inhalation; ph 16:02 Follow up: Response: No adverse reaction ph 15:59 Drug: Amoxicillin-Clavulanate PO 875 mg PO once Route: PO; ph 16:03 Follow up: Response: No adverse reaction ph Medication: 14:29 VIS not applicable for this client. ph Intake: 16:00 IV: 1000ml; Total: 1000ml. ph Outcome: 15:34 Discharge ordered by . ellie 16:03 Discharged to home ambulatory, with family, ph 16:03 Condition: good 16:03 Discharge instructions given to patient, Instructed on discharge instructions, follow up and referral plans. medication usage, Demonstrated understanding of instructions, follow-up care, medications, Prescriptions given X 5 16:43 Patient left the ED. bp Signatures: Dispatcher [employer] EDHarish Ramírez MD MD cha Calderon, Audri, RN RN [email or web address] Annita Larsen RN RN Cayden Garcia RN RN Freida Jorgensen 3
--- NOTE | 2024-07-19 15:44 | RAD REPORT ---
EXAMINATION: TWO VIEW CHEST XR CLINICAL INDICATION: Male, 34 years old. [facility] MAIN COUGH Bed Name: [facility] TECHNIQUE: 2 view radiographs of the chest were performed. COMPARISON: 07/17/2020 FINDINGS: The lungs are well inflated and clear. No pneumothorax or sizable effusion. The heart is normal in si ze. Mediastinal contours are unremarkable. IMPRESSION: No acute or significant abnormalities.
[2024-07-20 03:33] VITALS: O2SAT 98
[2024-07-20 03:34] VITALS: BP 150/61; TEMP 98
== END 2024-07-19 16:43 | disposition home or self-care (01) ==
LOC: ER 13:18
DX: J45.41 Moderate persistent asthma with (acute) exacerbation (principal); J06.9 Acute upper respiratory infection, unspecified; F17.220 Nicotine dependence, chewing tobacco, uncomplicated
CPT/HCPCS: 96361; 85025; 36415; 80053; 71046; 96374; 99285; J7512; J7614 ×2; J7644; J2919; J7030